=== PATIENT | female | born 1945 | race Caucasian/White ===

== ENCOUNTER 2017-04-18 07:51 | Inpatient (IN) | payer BC ==
[~2017-04-18 07:51] MED LIST: BUPIVACAINE 0.5% (SDV) 30 ML, morphine SULFATE (PF) 8 MG, EPINEPHrine 0.3 MG, KETOROLAC... IRR; CEFAZOLIN 2 GM/50 ML (PMX) 50 ML IVPB; SOD CHLORIDE 0.9% 100 ML, TRANEXAMIC ACID 3,000 MG IRR; TRANEXAMIC ACID 1,000 MG in DEXTROSE 5% 100 ML IVPB
[2017-04-18] MEDS: traMADol 50 MG TAB PO (08:47)
[2017-04-18] MEDS: DEXAMETHASONE 1 MG TAB PO (08:47)
[2017-04-18] MEDS: GABAPENTIN 300 MG CAP PO (08:47)
[2017-04-18] MEDS ORDERED: THROMBIN 5000 UNIT VIAL (09:25)
[2017-04-18] MEDS ORDERED: CA CHLORIDE 10% 10 ML SYRINGE (09:26)
[2017-04-18] MEDS ORDERED: POLYMYXIN/BACITRACIN 1L IRRIG (09:26)
[2017-04-18] MEDS: DIGOXIN 500 MCG INJ IV (12:26)
[2017-04-18] MEDS: ATENOLOL 25 MG TAB PO (12:26)
[2017-04-18] MEDS: METOPROLOL 5 MG INJ IV (12:27)
[2017-04-18 13:07] LABS: ANION GAP 13 (8-16); CARBON DIOXIDE 25 mmol/L (21-31); CHLORIDE 109 mmol/L (97-110); GLUCOSE 115 mg/dl (70-220)
[2017-04-18 13:09] LABS: BLOOD UREA NITROGEN 24 mg/dl (7-20); CALCIUM 9.4 mg/dl (8.4-10.2); CREATININE 0.84 mg/dl (0.44-1.00); POTASSIUM 3.6 mmol/L (3.5-5.1); SODIUM 143 mmol/L (135-144)
== END 2017-04-18 16:04 | disposition home or self-care (01) | DRG 310 ==
LOC: REC 07:51
PROVIDERS: Orthopaedic Surgery
DX: I48.91 Unspecified atrial fibrillation (principal); I10 Essential (primary) hypertension; Z87.891 Personal history of nicotine dependence; E78.5 Hyperlipidemia, unspecified; M16.11 Unilateral primary osteoarthritis, right hip; Z85.3 Personal history of malignant neoplasm of breast; Z90.12 Acquired absence of left breast and nipple; F41.9 Anxiety disorder, unspecified; F32.9 Major depressive disorder, single episode, unspecified; M85.80 Other specified disorders of bone density and structure, unspecified site
CPT/HCPCS: 80048; 84443; 93005; 93306

== ENCOUNTER 2017-05-30 05:42 | Inpatient (IN) | payer BC, MEDICARE ==
[2017-05-30] MEDS: CEFAZOLIN 2 GM/50 ML (PMX) 50 ML IVPB (06:14)
[2017-05-30] MEDS: GABAPENTIN 300 MG CAP PO ×2 (06:16→22:04)
[2017-05-30] MEDS: traMADol 50 MG TAB PO (06:17)
[2017-05-30] MEDS: DEXAMETHASONE 1 MG TAB PO (06:17)
[2017-05-30] MEDS ORDERED: BUPIVACAINE 0.5% (SDV) 30 ML, morphine SULFATE (PF) 8 MG, EPINEPHrine 0.3 MG, KETOROLAC... IRR (06:30)
[2017-05-30] MEDS ORDERED: SOD CHLORIDE 0.9% 100 ML, TRANEXAMIC ACID 3,000 MG IRR (06:30)
[2017-05-30] MEDS ORDERED: TRANEXAMIC ACID 1,000 MG in DEXTROSE 5% 100 ML IVPB (06:30)
[2017-05-30] MEDS ORDERED: CEFAZOLIN 1 GM INJ (06:59)
[2017-05-30] MEDS ORDERED: NEOSTIGMINE 3 MG/3 ML SYRINGE (06:59)
[2017-05-30] MEDS ORDERED: MIDAZOLAM 1 MG/ML 2 ML INJ (06:59)
[2017-05-30] MEDS ORDERED: ROCURONIUM 50 MG INJ (06:59)
[2017-05-30] MEDS ORDERED: GLYCOPYRROLATE 0.4 MG INJ (06:59)
[2017-05-30] MEDS ORDERED: FENTAnyl 50 MCG/ML VIAL (06:59)
[2017-05-30] MEDS ORDERED: PROPOFOL 20 ML (06:59)
[2017-05-30] MEDS ORDERED: ALBUMIN HUMAN 5% 250 ML INJ (07:00)
[2017-05-30] MEDS ORDERED: ONDANSETRON 4 MG INJ (07:00)
[2017-05-30] MEDS ORDERED: ETOMIDATE 20 MG INJ (07:00)
[2017-05-30] MEDS ORDERED: DEXAMETHASONE 4 MG/ML 1 ML INJ (07:00)
[2017-05-30] MEDS ORDERED: morphine SULFATE/PF (10 MG/10 ML) INJ (07:02)
[2017-05-30] MEDS ORDERED: hydrALAzine 20 MG INJ (07:26)
[2017-05-30] MEDS ORDERED: FENTAnyl 50 MCG/ML VIAL IV ×3 (08:00)
[2017-05-30] MEDS ORDERED: MIDAZOLAM 1 MG/ML 2 ML INJ IV (08:00)
[2017-05-30] MEDS ORDERED: DIPHENHYDRAMINE 50 MG INJ IV ×2 (08:00→09:00)
[2017-05-30] MEDS ORDERED: LABETALOL HCL 20MG INJ IV (08:00)
[2017-05-30] MEDS ORDERED: EPHEDrine SULFATE 50 MG/5 ML SYG IV (08:00)
[2017-05-30] MEDS ORDERED: HYDROmorphONE (0.2 MG/ML) 10ML SYG IV ×3 (08:00)
[2017-05-30] MEDS ORDERED: OXYCODONE/ACETAMINOPHEN (5/325) TAB PO ×3 (08:00→09:00)
[2017-05-30] MEDS ORDERED: ALBUTEROL 0.083% (NEB) 2.5 MG/3 ML AMP HHN (08:00)
[2017-05-30] MEDS ORDERED: MEPERIDINE 25 MG INJ IV (08:00)
[2017-05-30] MEDS ORDERED: TRIMETHOBENZAMIDE 100 MG/ML VIAL IM (08:00)
[2017-05-30] MEDS ORDERED: ONDANSETRON 4 MG INJ IV ×2 (08:00→09:00)
[2017-05-30] MEDS ORDERED: hydrALAzine 20 MG INJ IV (08:00)
[2017-05-30] MEDS ORDERED: IPRATROPIUM (NEB) 0.5 MG/2.5 ML AMP HHN (08:00)
[2017-05-30] MEDS: CA CHLORIDE 10% 10 ML SYRINGE (08:01)
[2017-05-30] MEDS: THROMBIN 5000 UNIT VIAL (08:02)
[2017-05-30] MEDS: POLYMYXIN/BACITRACIN 1L IRRIG (08:03)
[2017-05-30] MEDS ORDERED: PHENYLephrine (100 MCG/ML) 5ML SYG (08:20)
[2017-05-30] MEDS ORDERED: PHENYLephrine 10 MG INJ (08:20)
[2017-05-30] MEDS: LACTATED RINGER'S 1,000 ML IV ×3 (08:39→22:03)
[2017-05-30] MEDS ORDERED: SUGAMMADEX SODIUM 200 MG/2 ML VIAL IV (08:47)
[2017-05-30] MEDS: AMLODIPINE 2.5 MG TAB PO (09:00)
[2017-05-30] MEDS ORDERED: ACETAMINOPHEN 500 MG TAB PO (09:00)
[2017-05-30] MEDS ORDERED: MAGNESIUM HYDROXIDE 30ML CUP PO (09:00)
[2017-05-30] MEDS ORDERED: KETOROLAC 15 MG INJ IV (09:00)
[2017-05-30] MEDS ORDERED: morphine 2 MG INJ IV ×2 (09:00)
[2017-05-30] MEDS: METOPROLOL (XL) 25 MG TAB PO (09:00)
[2017-05-30 10:06] LABS: ADD MAN DIFF? NO
[2017-05-30] MEDS: CEFAZOLIN 1 GM/50 ML (PMX) 50 ML IVPB ×2 (10:09→17:16)
[2017-05-30] MEDS: TRANEXAMIC ACID 1,000 MG in DEXTROSE 5% 100 ML IV (10:12)
[2017-05-30 10:13] LABS: BASOPHILS % 0.2 % (0.0-2.0); EOSINOPHILS # 0.1 10^3/ul (0.0-0.5); EOSINOPHILS % 0.7 % (0.0-7.0); HEMATOCRIT 28.2 % (37.0-47.0); HEMOGLOBIN 9.3 g/dl (12.0-16.0); LYMPHOCYTES # 1.1 10^3/ul (0.8-2.9); LYMPHOCYTES % 7.1 % (15.0-51.0); MEAN CORPUSCULAR HEMOGLOBIN 31.2 pg (29.0-33.0); MEAN CORPUSCULAR VOLUME 94.6 fl (82.0-101.0); MEAN PLATELET VOLUME 9.3 fl (7.4-10.4); MONOCYTE # 0.3 10^3/ul (0.3-0.9); MONOCYTES % 1.9 % (0.0-11.0); NEUTROPHIL # 13.3 10^3/ul (1.6-7.5); PLATELET COUNT 293 10^3/UL (140-415); RED BLOOD COUNT 2.98 10^6/ul (4.20-5.40); RED CELL DISTRIBUTION WIDTH 13.3 % (11.5-14.5)
[2017-05-30 10:38] LABS: HOLD TRANSMISSIONS 1
[2017-05-30] MEDS: SENNA/DOCUSATE NA (8.6MG/50MG) TAB PO ×2 (13:59→22:04)
[2017-05-30] MEDS: DEXAMETHASONE 2 MG TAB PO ×2 (13:59→17:16)
[2017-05-30] MEDS: LACTATED RINGER'S 500 ML IV (14:00)
[2017-05-30] MEDS: APIXABAN 5 MG TABLET PO (15:37)
[2017-05-30] MEDS: ALPRAZOLAM 0.25 MG TAB PO ×2 (17:16→22:04)
[2017-05-30] MEDS: ATORVASTATIN 20 MG TAB PO (22:04)
[2017-05-30] MEDS: CARBIDOPA/LEVODOPA (25/100) TAB PO (22:04)
[2017-05-31] MEDS ORDERED: ALPRAZOLAM 0.25 MG TAB PO
[2017-05-31] MEDS: DEXAMETHASONE 2 MG TAB PO ×2 (00:09→06:25)
[2017-05-31] MEDS: ZOLPIDEM 5 MG TAB PO (01:22)
[2017-05-31] MEDS: CEFAZOLIN 1 GM/50 ML (PMX) 50 ML IVPB (01:22)
[2017-05-31 05:34] LABS: ADD MAN DIFF? NO
[2017-05-31 05:42] LABS: WHITE BLOOD COUNT 9.2 10^3/ul (4.8-10.8)
[2017-05-31 05:42] LABS: BASOPHILS % 0.1 % (0.0-2.0); HEMOGLOBIN 8.2 g/dl (12.0-16.0); LYMPHOCYTES % 10.6 % (15.0-51.0); MEAN CORPUSCULAR HEMOGLOBIN 30.6 pg (29.0-33.0); MEAN CORPUSCULAR HGB CONC 32.8 g/dl (32.0-37.0); MEAN CORPUSCULAR VOLUME 93.3 fl (82.0-101.0); MEAN PLATELET VOLUME 10.3 fl (7.4-10.4); MONOCYTE # 0.8 10^3/ul (0.3-0.9); MONOCYTES % 8.9 % (0.0-11.0); NEUTROPHIL # 7.4 10^3/ul (1.6-7.5); PLATELET COUNT 290 10^3/UL (140-415); RED BLOOD COUNT 2.68 10^6/ul (4.20-5.40); RED CELL DISTRIBUTION WIDTH 13.6 % (11.5-14.5)
[2017-05-31 05:59] LABS: ANION GAP 17 (8-16); BLOOD UREA NITROGEN 27 mg/dl (7-20); CALCIUM 8.9 mg/dl (8.4-10.2); CARBON DIOXIDE 23 mmol/L (21-31); CHLORIDE 103 mmol/L (97-110); GLUCOSE 111 mg/dl (70-220); POTASSIUM 4.5 mmol/L (3.5-5.1); SODIUM 138 mmol/L (135-144)
[2017-05-31 06:29] LABS: THYROID STIMULATING HORMONE 0.373 MIU/L (0.465-4.680)
[2017-05-31] MEDS: SENNA/DOCUSATE NA (8.6MG/50MG) TAB PO ×2 (09:00→21:46)
[2017-05-31] MEDS: CARBIDOPA/LEVODOPA (25/100) TAB PO ×2 (09:00→13:00)
[2017-05-31] MEDS ORDERED: ASPIRIN 81 MG TAB PO (09:00)
[2017-05-31] MEDS: METOPROLOL (XL) 25 MG TAB PO (09:03)
[2017-05-31] MEDS: LACTATED RINGER'S 1,000 ML IV (09:03)
[2017-05-31] MEDS: OXYCODONE/ACETAMINOPHEN (5/325) TAB PO (09:09)
[2017-05-31 15:39] LABS: IRON 26 ug/dl (35-150)
[2017-05-31 15:49] LABS: % IRON SATURATION 7 % SAT (22-52); TOTAL IRON BINDING CAPACITY 357 ug/dl (241-421)
[2017-05-31] MEDS: LORAZEPAM 2 MG INJ IV ×2 (16:06→16:59)
[2017-05-31 16:20] LABS: FERRITIN 67.2 ng/ml (11.1-264.0)
[2017-05-31 17:02] LABS: RAPID PLASMA REAGIN NONREACTIVE (NR)
[2017-05-31] MEDS: SOD CHLORIDE 0.9% 100 ML (17:06)
[2017-05-31] MEDS: IODIXANOL LOCM 100 ML BTL (17:06)
[2017-05-31 17:08] LABS: TROPONIN-I 0.018 ng/ml (0.00-0.12)
[2017-05-31] MEDS: FUROSEMIDE 40 MG INJ IV (18:31)
[2017-05-31] MEDS: TIOTROPIUM 18 MCG CAPSULE INHA DEV INH (19:30)
[2017-05-31 20:21] LABS: AADO2 Arterial 513.5 mmHg (7.0-24.0); Allen Test ACCEPTAB; Arterial Base Excess 1.3 mmol/L (-3.0-3); Arterial Blood Gas Oxygen Sat 98.6 mmHG (95.0-100.0); Arterial COHb 0.2 % (0.0-3.0); Arterial Fraction of Oxyhgb 98.1 % (93.0-99.0); Arterial HCO3 27.3 mmol/L (22.0-26.0); Arterial MetHb 0.3 % (0.0-1.5); Arterial Total Hemglobin 10.5 g/dl (12.0-18.0); Arterial pCO2 49.4 mmhg (35-45); MODE NON-REBREATHING MASK; Site Right Radial
[2017-05-31 20:23] LABS: TROPONIN-I 0.039 ng/ml (0.00-0.12)
[2017-05-31] MEDS: ATORVASTATIN 20 MG TAB PO (21:45)
[2017-05-31] MEDS: GABAPENTIN 300 MG CAP PO (21:46)
[2017-05-31] MEDS: SALMETEROL/FLUTICASONE 250/50 INHA INH (23:04)
[2017-06-01] MEDS: LACTATED RINGER'S 1,000 ML IV (01:11)
[2017-06-01] MEDS ORDERED: VITAMIN A & D 5 GM OINT PACKET TOP (03:54)
[2017-06-01 06:08] LABS: ADD MAN DIFF? NO
[2017-06-01 06:15] LABS: BASOPHILS % 0.3 % (0.0-2.0); EOSINOPHILS # 0.1 10^3/ul (0.0-0.5); EOSINOPHILS % 0.8 % (0.0-7.0); HEMATOCRIT 29.1 % (37.0-47.0); HEMOGLOBIN 9.6 g/dl (12.0-16.0); LYMPHOCYTES # 1.6 10^3/ul (0.8-2.9); LYMPHOCYTES % 13.2 % (15.0-51.0); MEAN CORPUSCULAR HEMOGLOBIN 30.9 pg (29.0-33.0); MEAN CORPUSCULAR VOLUME 93.6 fl (82.0-101.0); MEAN PLATELET VOLUME 10.1 fl (7.4-10.4); MONOCYTE # 0.8 10^3/ul (0.3-0.9); MONOCYTES % 6.5 % (0.0-11.0); NEUTROPHIL # 9.3 10^3/ul (1.6-7.5); NEUTROPHILS % 78.7 % (39.0-77.0); PLATELET COUNT 306 10^3/UL (140-415); RED BLOOD COUNT 3.11 10^6/ul (4.20-5.40); RED CELL DISTRIBUTION WIDTH 13.9 % (11.5-14.5)
[2017-06-01 06:15] LABS: WHITE BLOOD COUNT 11.9 10^3/ul (4.8-10.8)
[2017-06-01 06:37] LABS: ALANINE AMINOTRANSFERASE 31 IU/L (13-69); ALBUMIN 3.3 g/dl (3.3-4.9); ALBUMIN/GLOBULIN RATIO 1.26; ALKALINE PHOSPHATASE 107 IU/L (42-121); ANION GAP 14 (8-16); ASPARTATE AMINO TRANSFERASE 41 IU/L (15-46); BLOOD UREA NITROGEN 25 mg/dl (7-20); CALCIUM 8.7 mg/dl (8.4-10.2); CARBON DIOXIDE 30 mmol/L (21-31); CHLORIDE 105 mmol/L (97-110); CREATININE 0.85 mg/dl (0.44-1.00); GLUCOSE 86 mg/dl (70-220); POTASSIUM 3.1 mmol/L (3.5-5.1); SODIUM 146 mmol/L (135-144); TOTAL PROTEIN 5.9 g/dl (6.1-8.1)
[2017-06-01 06:47] LABS: TROPONIN-I 0.033 ng/ml (0.00-0.12)
[2017-06-01] MEDS: TIOTROPIUM 18 MCG CAPSULE INHA DEV INH (09:00)
[2017-06-01] MEDS: SPIRONOLACTONE 25 MG TAB PO (09:29)
[2017-06-01] MEDS: SENNA/DOCUSATE NA (8.6MG/50MG) TAB PO ×2 (09:29→20:55)
[2017-06-01] MEDS: METOPROLOL (XL) 25 MG TAB PO (09:29)
[2017-06-01] MEDS: FUROSEMIDE 40 MG TAB PO (09:30)
[2017-06-01] MEDS: SALMETEROL/FLUTICASONE 250/50 INHA INH ×2 (09:30→20:56)
[2017-06-01] MEDS: POTASSIUM CHLORIDE 20 MEQ in DEXTROSE 5% 100 ML IVPB ×2 (12:23→14:51)
[2017-06-01 16:08] LABS: ANION GAP 12 (8-16); BLOOD UREA NITROGEN 22 mg/dl (7-20); CALCIUM 8.6 mg/dl (8.4-10.2); CARBON DIOXIDE 30 mmol/L (21-31); CHLORIDE 103 mmol/L (97-110); CREATININE 0.81 mg/dl (0.44-1.00); GLUCOSE 95 mg/dl (70-220); SODIUM 142 mmol/L (135-144)
[2017-06-01 16:15] LABS: POTASSIUM 2.9 mmol/L (3.5-5.1)
[2017-06-01] MEDS: SOD FERRIC GLUC COMPLX 125 MG in SOD CHLORIDE 0.9% 100 ML IVPB (16:38)
[2017-06-01] MEDS: OXYCODONE/ACETAMINOPHEN (5/325) TAB PO (16:42)
[2017-06-01] MEDS: POTASSIUM CHLORIDE 100 ML IVPB (19:03)
[2017-06-01] MEDS: ZOLPIDEM 5 MG TAB PO (20:55)
[2017-06-01] MEDS: ATORVASTATIN 20 MG TAB PO (20:55)
[2017-06-01] MEDS: GABAPENTIN 300 MG CAP PO (20:55)
[2017-06-02] MEDS: POTASSIUM CHLORIDE 100 ML IVPB ×3 (00:26→22:44)
[2017-06-02] MEDS: OXYCODONE/ACETAMINOPHEN (5/325) TAB PO ×4 (01:17→20:56)
[2017-06-02 05:35] LABS: ADD MAN DIFF? NO
[2017-06-02 05:39] LABS: BASOPHILS % 0.3 % (0.0-2.0); EOSINOPHILS # 0.2 10^3/ul (0.0-0.5); EOSINOPHILS % 2.8 % (0.0-7.0); HEMATOCRIT 31.9 % (37.0-47.0); HEMOGLOBIN 10.6 g/dl (12.0-16.0); LYMPHOCYTES # 1.9 10^3/ul (0.8-2.9); LYMPHOCYTES % 24.8 % (15.0-51.0); MEAN CORPUSCULAR HEMOGLOBIN 30.8 pg (29.0-33.0); MEAN CORPUSCULAR HGB CONC 33.2 g/dl (32.0-37.0); MEAN CORPUSCULAR VOLUME 92.7 fl (82.0-101.0); MONOCYTE # 0.5 10^3/ul (0.3-0.9); MONOCYTES % 6.7 % (0.0-11.0); NEUTROPHIL # 4.9 10^3/ul (1.6-7.5); NEUTROPHILS % 65.1 % (39.0-77.0); PLATELET COUNT 341 10^3/UL (140-415); RED BLOOD COUNT 3.44 10^6/ul (4.20-5.40); RED CELL DISTRIBUTION WIDTH 13.8 % (11.5-14.5)
[2017-06-02 05:39] LABS: WHITE BLOOD COUNT 7.5 10^3/ul (4.8-10.8)
[2017-06-02 06:15] LABS: ANION GAP 11 (8-16); BLOOD UREA NITROGEN 18 mg/dl (7-20); CALCIUM 8.3 mg/dl (8.4-10.2); CARBON DIOXIDE 33 mmol/L (21-31); CHLORIDE 101 mmol/L (97-110); CREATININE 0.75 mg/dl (0.44-1.00); GLUCOSE 94 mg/dl (70-220); POTASSIUM 3.1 mmol/L (3.5-5.1); SODIUM 142 mmol/L (135-144)
[2017-06-02 06:36] LABS: MAGNESIUM 1.6 mg/dl (1.7-2.5)
[2017-06-02] MEDS: SENNA/DOCUSATE NA (8.6MG/50MG) TAB PO ×2 (08:05→20:52)
[2017-06-02] MEDS: METOPROLOL (XL) 25 MG TAB PO (08:05)
[2017-06-02] MEDS: SPIRONOLACTONE 25 MG TAB PO (08:05)
[2017-06-02] MEDS: FUROSEMIDE 40 MG TAB PO (08:05)
[2017-06-02] MEDS: SALMETEROL/FLUTICASONE 250/50 INHA INH ×2 (08:06→20:53)
[2017-06-02] MEDS: TIOTROPIUM 18 MCG CAPSULE INHA DEV INH (10:29)
[2017-06-02] MEDS: POTASSIUM CHLORIDE (SR) 20 MEQ TAB PO (11:49)
[2017-06-02] MEDS: MAGNESIUM SULFATE 4 GM/100 ML 100 ML IVPB (12:30)
[2017-06-02] MEDS: GABAPENTIN 300 MG CAP PO (20:52)
[2017-06-02] MEDS: ATORVASTATIN 20 MG TAB PO (20:52)
[2017-06-02] MEDS: SOD FERRIC GLUC COMPLX 125 MG in SOD CHLORIDE 0.9% 100 ML IVPB (20:54)
[2017-06-02] MEDS: ZOLPIDEM 5 MG TAB PO (21:05)
[2017-06-03] MEDS: OXYCODONE/ACETAMINOPHEN (5/325) TAB PO ×3 (01:56→13:35)
[2017-06-03 05:12] LABS: ADD MAN DIFF? NO
[2017-06-03 05:21] LABS: WHITE BLOOD COUNT 7.4 10^3/ul (4.8-10.8)
[2017-06-03 05:21] LABS: BASOPHILS % 0.3 % (0.0-2.0); EOSINOPHILS # 0.4 10^3/ul (0.0-0.5); EOSINOPHILS % 4.9 % (0.0-7.0); HEMATOCRIT 33.7 % (37.0-47.0); HEMOGLOBIN 10.8 g/dl (12.0-16.0); LYMPHOCYTES # 1.9 10^3/ul (0.8-2.9); LYMPHOCYTES % 26.1 % (15.0-51.0); MEAN CORPUSCULAR HEMOGLOBIN 30.3 pg (29.0-33.0); MEAN CORPUSCULAR VOLUME 94.4 fl (82.0-101.0); MEAN PLATELET VOLUME 9.9 fl (7.4-10.4); MONOCYTE # 0.6 10^3/ul (0.3-0.9); NEUTROPHIL # 4.5 10^3/ul (1.6-7.5); NEUTROPHILS % 60.4 % (39.0-77.0); PLATELET COUNT 369 10^3/UL (140-415); RED BLOOD COUNT 3.57 10^6/ul (4.20-5.40); RED CELL DISTRIBUTION WIDTH 13.7 % (11.5-14.5)
[2017-06-03 05:37] LABS: MAGNESIUM 2.3 mg/dl (1.7-2.5)
[2017-06-03 05:47] LABS: ANION GAP 12 (8-16); BLOOD UREA NITROGEN 15 mg/dl (7-20); CALCIUM 8.5 mg/dl (8.4-10.2); CARBON DIOXIDE 31 mmol/L (21-31); CHLORIDE 105 mmol/L (97-110); CREATININE 0.73 mg/dl (0.44-1.00); GLUCOSE 99 mg/dl (70-220); POTASSIUM 4.1 mmol/L (3.5-5.1); SODIUM 144 mmol/L (135-144)
[2017-06-03] MEDS: SALMETEROL/FLUTICASONE 250/50 INHA INH (09:11)
[2017-06-03] MEDS: TIOTROPIUM 18 MCG CAPSULE INHA DEV INH (09:11)
[2017-06-03] MEDS: POTASSIUM CHLORIDE (SR) 20 MEQ TAB PO (09:12)
[2017-06-03] MEDS: SENNA/DOCUSATE NA (8.6MG/50MG) TAB PO (09:12)
[2017-06-03] MEDS: FUROSEMIDE 40 MG TAB PO (09:12)
[2017-06-03] MEDS: SPIRONOLACTONE 25 MG TAB PO (09:12)
[2017-06-03] MEDS: METOPROLOL (XL) 25 MG TAB PO (09:13)
[2017-06-04] MEDS ORDERED: METOPROLOL (XL) 25 MG TAB PO (09:00)
[2017-06-04] MEDS ORDERED: FUROSEMIDE 40 MG TAB PO (09:00)
== END 2017-06-03 14:29 | disposition home or self-care (01) | DRG 470 ==
LOC: REC 05:42 → MS1 10:45
PROVIDERS: Orthopaedic Surgery
PROC: 0SR904A Replacement of Right Hip Joint with Ceramic on Polyethylene Synthetic Substitute, Uncemented, Open Approach (ICD-10-PCS; principal; 2017-05-30 06:58)
DX: M16.11 Unilateral primary osteoarthritis, right hip (principal); I48.0 Paroxysmal atrial fibrillation; I11.0 Hypertensive heart disease with heart failure; I50.30 Unspecified diastolic (congestive) heart failure; J44.9 Chronic obstructive pulmonary disease, unspecified; F17.210 Nicotine dependence, cigarettes, uncomplicated; D50.9 Iron deficiency anemia, unspecified; E78.5 Hyperlipidemia, unspecified; F41.9 Anxiety disorder, unspecified; G47.00 Insomnia, unspecified; L82.1 Other seborrheic keratosis; Z85.3 Personal history of malignant neoplasm of breast; Z90.12 Acquired absence of left breast and nipple
CPT/HCPCS: 36600; 71045; 71275; 72170; 73030; 73530; 80048; 80053; 82533; 82728; 82803; 83540; 83735; 84443; 84484; 85025; 86592; 86850; 86900; 86901; 86999; 87086; 93005; 93306; 94660; 97110; 97116; 97162; 97530